=== PATIENT | female | born 1955 | race Asian ===

== ENCOUNTER 2025-01-09 00:37 | Emergency (ER) | payer OTHER, SELFPAY ==
--- OUTSIDE RECORDS SUMMARY | 2024-11-29 13:10 | XMS_ITS | Encounter Summary ---
Author Organization [employer] Address [address] [place] [address] Care Team Providers Care Passenger Flagman Name Role Phone Gena Muro MD Primary Care Provider [phone] Reason for Visit * Procedure/Equipment (Routine) - Incomplete Specialty Diagnoses / Procedures Referred By Contac t Referred To Contact Diagnoses Encounter for screening mammogram for malignant neoplasm of breast Procedures MM Mammogram Screening Karen Bautista MD [address] [place] [address] Phone: tel: fax: Referral ID Status Reason Start Date Expiration Date V isits Requested Visits Authorized [id number] Incomplete 06/22/2024 09/21/2025 1 1 Encounter Details Date Type Department Care Team (Latest Contact Info) Description 11/29/2024 1:10 PM CDT Ancillary Procedure [facility] Mammography [address] [place] [id number] Encounter for screening mammogram for malignant neoplasm of breast Social History Tobacco Use Types Packs/Day Years Used Date Smoking Tobacco: Never Passive Smoke Exposure: Never Smokeless Tobacco: Never Alcohol Use Standard Drinks/Week Comments No 0 (1 standard drink = 0.6 oz pur e alcohol) PHQ-2 Answer Date Recorded PHQ-2 Score 0 06/22/2024 Comments No Sex and Gender Information Value Date Recorded Sex Assigned at Not on file Legal Sex Female 4:42 AM CDT Gender Identity Not on file Sexual Orientation Not on file documented as of this encounter Plan of Treatment Upcoming Encounters Date Type Department Care Team (Late st Contact Info) Description 02/16/2025 3:20 PM CDT Appointment [facility] [address] [facility] [place] [phone] [place] [address] [place] [address] [place] [phone] 09/28/2025 1:15 PM CDT Appointment [facility] 435 [place], [place] [phone] Sari Alcaraz MD 435 [place] [address] 11/10/2025 2:00 PM CDT Appointment Optometry at [facility] [address] 401 [facility]. [place], [place] [phone] Edil Bradford OD 401 [place] [address] documented as of this encounter Procedures Procedure Name Priority Date/Time Associated Diagnosis Comments MM MAMMOGRAM SCREENING BILAT W CAD Routine 11/29/2024 12:59 PM CDT Encounter for screening mammogram for malignant neoplasm of breast documented in this encounter Results * MM Mammogram Screening Bilat W CAD (11/29/2024 12:59 PM CDT) Anatomical Region Laterality Modality Breast Bilateral Mammography Impressions 11/30/2024 9:20 AM CDT : ACR BI-RADS Category 1: Negative RECOMMENDATION: Follow Up Imaging in 12 months - Bilateral The results and recommendations of this examination will be communicated to the patient. Narrative 11/30/2024 9:20 AM CDT MM MAMMOGRAM SCREENING BILAT W CAD performed on 11/29/24 FDA Accredited Facility: [place] [address] Compared to: 12/16/2022 MM Mammogram Screening Bilat W CAD, 07/27/2021 MM Mammogram Screening Bilat W 3D Raad W CAD, and 01/01/2019 MM Mammogram Screening Bilat W 3D Raad W CAD FINDINGS: Bilateral screening mammogram was performed with the assistance of Computer-Aided Detection . There are scattered areas of fibroglandular density. There is no radiographic evidence of malignancy. us Karen Posey MD RAD KIM Final Result documented in this encounter Visit Diagnoses Diagnosis Encounter for screening mammogram for malignant neoplasm of breast Other screening mammogram documented in this encounter Care Teams Passenger Flagman Relationship Specialty Start Date End Date Gena Muro MD [address] [place] [address] PCP - General Family Practice 11/17/24 documented as of this encounter
[2025-01-09 00:46] VITALS: BP 129/76; PULSE 73; RESP 16; TEMP 36.6; O2SAT 98; BMI 25.6
[2025-01-09 00:54] LABS: Appearance Urine Cloudy (Clear)
--- NOTE | 2025-01-09 00:54 | ED_ITS ---
HPI - General Adult General Chief complaint: Urogenital Problems, Female Stated complaint: blood in urine Time Seen by Provider: 01/09/25 00:54 History of Present Illness HPI narrative: lower middle abdominal pain with blood in urine. denies fevers. states has had this on and off for years, usually takes Solifenacin for this. 69-year-old woman presenting to the emergency department with concern of burning pain in the mid lower abdomen. 3 days of some suprapubic abdominal pain somewhat burning and urinary frequency and then today has noted some hematuria. History of taking solifenacin as prescribed by doctors. She indicates initially that she has never been diagnosed with the urinary tract infection; it has never been communicated. No fever. Related Data Home Medications ?Medication ?Instructions ?Recorded ?Confirmed glipizide PO 01/09/25 metformin .ROUTE 01/09/25 Allergies Allergy/AdvReac Type Severity Reaction Status Date / Time No Known Drug Allergies Allergy Verified 01/09/25 00:50 Review of Systems Status of ROS: Reports: 6 or more systems reviewed and unremarkable except as noted in History and below [facility] Medical History Overactive bladder ?N32.81 - Overactive bladder (ICD-10) Social History Smoking Status: Never smoker Second hand tobacco smoke exposure: No How often do you have a drink containing alcohol: never AUDIT-C Alcohol total score: 0 Non-prescribed substance use: denies use Exam Narrative: Exam Narrative: Pleasant. NAD. Visit aided with sprinkling system installer. Accompanied by daughter. I think Ronnie understands a good deal of Kitt[place]. Breathing easily. Heart in regular rate and rhythm. Abdomen is soft and tender in the suprapubic area. No peritoneal signs. No masses. Extremities are well perfused without edema. Const: Vital Signs, click to edit/add: Vital Signs - 24 hr 01/09/25 00:46 Temperature 97.9 F Pulse Rate [Pulse Oximeter] 73 Respiratory Rate 16 Blood Pressure [Ri ght Upper Arm] 129/76 Pulse Oximetry 98 Oxygen Delivery Me thod Room Air Documenting provider has reviewed patient's vital signs: yes Course Vital Signs Vital signs: Initial Vital Signs Temperature 97.9 F 01/09/25 00:46 Temperature Source Temporal Artery Scan 08/24/25 00:46 Pulse Rate 73 01/09/25 00:46 Respiratory Rate 16 01/09/25 00:46 Blood Pressure 129/76 01/09/25 00:46 Blood Pressure Mean 93 01/09/25 00:46 Blood Pressure Position Sitting 01/09/25 00:46 Pulse Oximetry 98 01/09/25 00:46 Oxygen Delivery Method Room Air 01/09/25 00:46 Vital Signs Temperature 97.9 F 01/09/25 00:46 Pulse Rate 73 01/09/25 00:46 Respiratory Rate 16 01/09/25 00:46 Blood Pressure 129/76 01/09/25 00:46 Pulse Oximetry 98 01/09/25 00:46 Oxygen Delivery Method Room Air 01/09/25 00:46 Temperature 97.9 F 01/09/25 01:48 Pulse Rate 70 01/09/25 01:48 Respiratory Rate 16 01/09/25 01:48 Blood Pressure 124/71 01/09/25 01:48 Pulse Oximetry 98 01/09/25 01:47 Oxygen Delivery Method Room Air 01/09/25 01:47 Medical Decision Making MDM Narrative Medical decision making narrative: Does not seem to have degree of pain that I would think for ureteral stone and colic. Vitals otherwise do not suggest other more concerning abnormality. Urinalysis looking for cystitis/UTI. Urinalysis looks infected. Anticipating treatment with cephalexin and would offer treatment with phenazopyridine as well. See patient discharge plan for further discussion Focus on staying hydrated with water. Your urine does look to be infected. We will be doing a urine culture here and if it looks like we need to change course with antibiotics or make other recommendations, we will give you a call. I am prescribing cephalexin, an antibiotic, from [facility]. Also prescribing phenazopyridine which you can take for burning-type pain. This is available [id number] under a brand-name Azo. Return for marked increase in pain, associated vomiting or fever. Lab Data Lab results reviewed: Yes I reviewed the patient's lab results Labs: Lab Results 01/09/25 Range/Units 00:45 Urine Color Yellow (Yellow) Urine Appearance Cloudy A (Clear) Urine pH 8.0 (5.0-8.5) Ur Specific [place]is 1.015 (1.000-1.030) Urine Protein 1+ A (Negative) Urine Glucose (UA) Negative (Negative) Urine Ketones Negative (Negative) Urine Blood 3+ A (Negative) Urine Nitrite Negative (Negative) Urine Bilirubin Negative (Negative) Urine Urobilinogen 0.2 (0.2-1.0) Ur Leukocyte Esterase 3+ A (Negative) Urine RBC 10-25 A (0-2) Urine WBC >100 A (0-5) Urine WBC Clumps Moderate A (None) Ur Squamous Epith Cells None (None-Few) Urine Bacteria Moderate A (None) Discharge Plan Discharge Clinical Impression: Cystitis Patient Disposition: Home w/ Parent or Adult Condition: Stable Additional Instructions: Focus on staying hydrated with water. Your urine does look to be infected. We will be doing a urine culture here and if it looks like we need to change course with antibiotics or make other recommendations, we will give you a call. I am prescribing cephalexin, an antibiotic, from [facility]. Also prescribing phenazopyridine which you can take for burning-type pain. This is available [id number] under a brand-name Azo. Return for marked increase in pain, associated vomiting or fever. phtao t eulalia elizabeth roksaa [place] cheamuoynung tuk . tuknom robsa anak meul tow mean merok . rigoberto nung thveu vobbathmr tuknom now tinih haey brasenbae sandra meultowdauchchea rigoberto trauvkar phlasa btau r vokkoseksaa cheamuoynung thnam ang ti bi yo tich ryy thveukear bassam phsaengtiet rigoberto nung toursapt tow anak . khnhom kampoung chenh vechchobanhchea cephalexin del luc ang ti bi shiloh ti kpi [facility] . ka chenh vechchobanhchea phenazopyridine del anak ach ttuol yk samreab karchhucheab braphet dot . nih? ku? ach? rk? paolo? ban? now? bee? banhchor? kraom? meak yihao Azo . kellyokbernice [facility] stella guillen . Prescriptions: No Action metformin .ROUTE glipizide PO Stand Alone Forms: [facility] Inst[facility]
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
--- OUTSIDE RECORDS SUMMARY | 2025-01-09 01:37 | XMS_ITS | Encounter Summary ---
Author Organization [email or web address] Address [address] [place] [address] Care Team Providers Care Laundry Attendant Name Role Phone Gena Muro MD Primary Care Provider [phone] Encounter Details Date Type Department Care Team (Late st Contact Info) Description 03/16/2012 Consent for Procedure/Treatme nt [facility] Department INFORMED CONSENT RECORD Social History Tobacco Use Types Packs/Day Years Used Date Smoking Tobacco: Never Smokeless Tobacco: Never Comments:11 Alcohol Use Standard Drinks/Week Comments No 0 (1 standard drink = 0.6 oz pur e alcohol) 11 Comments No Sex and Gender Information Value Date Recorded Sex Assigned at Not on file Legal Sex Female 4:42 AM CDT Gender Identity Not on file Sexual Orientation Not on file documented as of this encounter Progress Notes * [facility], PROVIDER - 03/16/2012 12:00 AM CDT documented in this encounter Plan of Treatment Upcoming Encounters Date Type Department Care Team (Late st Contact Info) Description 02/16/2025 3:20 PM CDT Appointment [facility] [address] [place] [address] [place] [phone] [place] [address] [place] [address] [place] [address] 09/28/2025 1:15 PM CDT Appointment [facility] 435 [place] [address] Sari Alcaraz MD 435 [place] [address] 11/10/2025 2:00 PM CDT Appointment Optometry at [facility] 401 [address] 401 [facility] 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
--- OUTSIDE RECORDS SUMMARY | 2025-01-09 01:37 | XMS_ITS | Encounter Summary ---
Author Organization [employer] Address [address] [place] [address] Care Team Providers Care Barbecue Cook Name Role Phone Gena Muro MD Primary Care Provider [phone] Encounter Details Date Type Department Care Team (Late st Contact Info) Description 11/09/2013 Outside Hospital External to [facility], Provider INITIAL ASSESSMENT Social History Tobacco Use Types Packs/Day Years Used Date Smoking Tobacco: Never Smokeless Tobacco: Never Alcohol Use Standard [...] Info) Description 02/16/2025 3:20 PM CDT Appointment [facility] [address] [place] [address] [place] [phone] Gena Muor MD [address] [place] [address] [place] [phone] 09/28/2025 1:15 PM CDT Appointment Specialty Center [facility] U[facility] Clinic [address] [place] [address]. [place] [address] Sari Alcaraz MD [address] [place] [address] 11/10/2025 2:00 PM CDT Appointment Optometry at [facility] 401 [address] 401 [facility]. 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
--- OUTSIDE RECORDS SUMMARY | 2025-01-09 01:37 | XMS_ITS | Encounter Summary ---
Author Organization [employer] Address [address] [place] [address] Care Team Providers Care Insulation Sprayer Name Role Phone Gena Muro MD Primary Care Provider Encounter Details Date Type Department Care Team (Late st Contact Info) Description 07/22/2016 Refill Order [facility] [address] [place] [address] Karen Posey MD [address] [place] [phone] Social History Tobacco Use Types Packs/Day Years Used Date Smoking Tobacco: Never Smokeless Tobacco: Never Alcohol Use Standard Drinks/Week Comments No 0 (1 standard drink = 0.6 oz pur e alcohol) Comments No Sex and Gender Information Value Date Recorded Sex Assigned at Not on file Legal Sex Female 4:42 AM CDT Gender Identity Not on file Sexual Orientation Not on file documented as of this encounter Nursing Notes * Manuel Denton CMA - 07/22/2016 1:00 PM CST Letter sent to ptAntonio Denton CMA 07/22/2016, 1:00 PM 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 documented in this encounter Plan of Treatment Upcoming Encounters Date Type Department Care Team (Late st Contact Info) Description 02/16/2025 3:20 PM CDT Appointment [facility] [address] [place] [phone] Gena Muro MD [address] [place] [phone] 09/28/2025 1:15 PM CDT Appointment [facility] 435 [place], [place] [phone] Sari Alcaraz MD 435 [place] [address] 11/10/2025 2:00 PM CDT Appointment Optometry at [facility] 401 [address] 401 [place], [place] [phone] Edil Bradford, OD 401 [place], [place] [phone] documented as of this encounter Results * Creatinine / GFR (08/09/2016 12:20 PM CDT) Creatinine 0.59 0.55 - 1.02 mg/dl [facility] GFR, Estimated >60 >60 ml/min/1.7 3m2 [facility] GFR, Est., If Black >60 >60 ml/min/1.7 3m2 [facility] 08/09/2016 12:2 0 PM CDT 08/09/2016 12:22 PM CDT Narrative [facility] - 08/09/2016 4:04 PM CDT Performed at [facility], [address] [place] [address] us Karen Posey MD LAB_1 Final Result [facility] [phone] documented in this encounter Visit Diagnoses Diagnosis Encounter for long-term (current) use of medications- Primary Encounter for long-term (current) use of other medications Encounter for long-term (current) use of medications Encounter for long-term (current) use of other medications documented in this encounter Additional Health Concerns Infection Onset Date Last Indicated Resolved Time R/O COVID19 05/21/2023 05/21/2023 05/21/2023 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
--- OUTSIDE RECORDS SUMMARY | 2025-01-09 01:37 | XMS_ITS | Encounter Summary ---
Author Organization [employer] Address [address] [place] [address] Care Team Providers Care Project Planner Name Role Phone Gena Muro MD Primary Care Provider [phone] Encounter Details Date Type Department Care Team (Late st Contact Info) Description 05/21/2019 Consent for Procedure/Treatme nt [facility] INFORMED CONSENT RECORD Social History Tobacco Use Types Packs/Day Years Used Date Smoking Tobacco: Never Smokeless Tobacco: Never Alcohol Use Standard Drinks/Week Comments No 0 (1 standard drink = 0.6 oz pur e alcohol) PHQ-2 Answer Date Recorded PHQ-2 Score 0 04/16/2019 Comments No Sex and Gender Information Value Date Recorded Sex Assigned at Not on file Legal Sex Female 4:42 AM CDT Gender Identity Not on file Sexual Orientation Not on file documented as of this encounter Plan of Treatment Upcoming Encounters Date Type Department Care Team (Late st Contact Info) Description 02/16/2025 3:20 PM CDT Appointment [facility] [address] [place] [address] [place] [phone] [place] [address] [place] [address] [place] [phone] 09/28/2025 1:15 PM CDT Appointment [facility] [address] [place] [address] Sari Alcaraz MD [address] [place] [address] 11/10/2025 2:00 PM CDT Appointment Optometry at [facility] [address] 401 [facility] 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
--- OUTSIDE RECORDS SUMMARY | 2025-01-09 01:37 | XMS_ITS | Clinical Summary ---
Author Organization [employer] Address [address] [place] [address] Care Team Providers Care Junior Designer Name Role Phone Gena Muro MD Primary Care Provider [phone] Source Comments You are receiving this document as you are listed as the primary care provider,follow-up provider, or the patient has been referred to you for consultation.This is in compliance with the Medicare andMedicaid EHR Incentive Program,which states Providers who transition their patient to another setting of careor provider of care or refers their patient to another provider of care shouldprovide summary care record for each transition of care or referral. [employer] Allergies Active Allergy Reactions Criticality Noted Date Comments Pravastatin Headache 01/14/2022 Statins Headache 03/16/2024 Ezetimibe Dizziness 07/20/2022 drowsiness Medications Multiple Vitamins-Calcium (ONE-A-DAY WOMENS OR) Active blood glucose (ACCU-CHEK BREE) strip Apply topically two times a day before meals. Use as directed. Pharmacy dispense brand based on insurance and as needed 100 Each 012 Active lancets (ACCU-CHEK MULTICLIX LANCETS) two times a day before meals. Use as directed. Pharmacy dispense brand based on insurance. 102 Each 012 Active Cholecalciferol (VITAMIN D3) 25 MCG (1000 UT) taIndications:Vitamin D deficiency (HRC) Take 1 Tablet by mouth daily. 100 Tablet 021 Active Propylene Glycol 0.6 % SOLNIndications:Dry eyes, bilateral Place 1 Drop into both eyes daily as needed. 10 mL 023 Active meclizine (ANTIVERT) 25 MG tablet MECLIZINE HCL 25 MG TABS Active blood glucose (ONETOUCH VERIO) test stripIndications:Type 2 diabetes mellitus without complication, without long-term current use of insulin (HRC) Use to test daily. for diabetes monitoring 100 Each 024 Active ONETOUCH DELICA lancetsIndications:Type 2 diabetes mellitus without complication, without long-term current use of insulin (HRC) Use once daily. 100 Each Active solifenacin (VESICARE) 10 MG tabletIndications:Urina ry Incontinence Take 1 Tablet (10 mg) by mouth daily. Indications: Urinary Incontinence 90 Tablet 3 025 2025 Active metFORMIN (GLUCOPHAGE) 1000 MG tablet TAKE 1 TABLET BY MOUTH TWICE DAILY WITH MEALS 180 Tablet 2 Active glipiZIDE XL (GLUCOTROL XL) 10 MG 24 hour release tabletIndications:Type 2 diabetes mellitus without complication, without long-term current use of insulin (HRC) TAKE 1 TABLET BY MOUTH TWICE DAILY WITH MEALS 180 Tablet 2 Active blood glucose (ONETOUCH VERIO) test stripIndications:Type 2 diabetes mellitus without complication, without long-term current use of insulin (HRC) Use to test bg 1 time daily. Use as directed. 50 Each Active Lancets (ONETOUCH DELICA PLUS) MISC lancetsIndications:Type 2 diabetes mellitus without complication, without long-term current use of insulin (HRC) USE TO TEST BLOOD SUGAR 2 TIMES DAILY 100 Each Active rosuvastatin (CRESTOR) 10 MG tabletIndications:Pure hypercholesterolemia Take 0.5 Tablets (5 mg) by mouth daily. 45 Tablet Active losartan-hydrochlorothi azide (HYZAAR) 50-12.5 MG tabletIndications:Essen tial hypertension (HRC) Take 1 Tablet by mouth daily. 90 Tablet 3 025 2025 Active Active Problems Problem Noted Date Diagnosed Date Overactive bladder 07/03/2023 Language barrier affecting health care Statin not tolerated 01/14/2022 Overview (12/12/2022): April 2021-pravastatin stop secondary to severe headaches. Zetia started in December 2021- stopped because of dizziness. Pure hypercholesterolemia 01/14/2022 Senile nuclear cataract, right 05/21/2019 Overview (05/21/2019): Added automatically from request for surgery [id number] Screening for malignant neoplasm of cervix 12/15 Overview (02/18/2015): [id number] NILM 2015 NILM, hpv negative Plan: Co-test 11/2019 ICD 10 Type 2 diabetes mellitus without complication Benign positional vertigo 11/08/2013 Pelvic relaxation disorder 10/22/2010 Vitamin D deficiency 11/16/2008 Low back pain 10/28/2006 Overview (01/25/2015): ICD 10 Resolved Problems Problem Noted Date Diagnosed Date Resolved Date PVD (posterior vitreous deta chment), right eye 05/24/2019 09/03/2021 Diabetes mellitus 01/21/2014 12/10/2014 Hyperlipidemia with target LDL less than 100 3 12/10/2014 Overview (01/25/2015): ICD 10 Diabetes mellitus type II, uncontrolled 03/10/2011 11/15/2013 Helicobacter pylori infection 11/10/2008 06/21/2013 Overview (01/25/2015): ICD 10 Allergic rhinitis 10/28/2006 12/10/2014 Esophageal reflux 03/26/2004 12/10/2014 Encounters Date Type Department Care Team Description 12/07/2024 Results Follow-Up [facility] [address] [place] [address] [place] [phone] Gena Muro MD 11/29/2024 1:10 PM CDT Ancillary Procedure [address] [address] Encounter for screening mammogram for malignant neoplasm of breast 11/17/2024 3:40 PM CDT Office Visit [facility] [address] [facility] [place] [phone] Gena Muro MD Type 2 diabetes mellitus without complication, without long-term current use of insulin (HRC) (Primary Dx); Essential hypertension (HRC); Pure hypercholesterolemi a; Medication monitoring encounter 11/15/2024 Refill [facility] [place] [address] Karen Posey MD Refill (metFORMIN (GLUCOPHAGE) 1000 MG tablet [Pharmacy Med Name: metFORMIN HCl 1000 MG Oral Tablet]; glipiZIDE XL (GLUCOTROL XL) 10 MG 24 hour release tablet [Pharmacy Med Name: glipiZIDE ER 10 MG Oral Tablet Extended Release 24 Hour]) 11/10/2024 2:00 PM CDT Office Visit Optometry at [address] [address] Edil Bradford, ASHA Visit for eye and vision exam (Primary Dx); Myopia of both eyes with astigmatism and presbyopia; Dry eyes, bilateral; Diabetes type 2, no ocular involvement (HRC); Combined forms of age-related cataract of left eye; Pseudophakia from Last 3 Months Immunizations Immunization Administration Dates Next Due Flu Vac (3+ yrs) 02/05/2012,02/06/2011, 0 Flu Vac Preserv Free (3+yrs) 02/23/2016 Fluzone Qiv Multidose Vial 0 .25 (6-35 Mos) 03/16/2019,03/26/2017,02/26/2016 Hdcv - Rabies Vaccine 02/18/2011,02/11/2011 Hepatitis B - Surface Antibo dy Positive 01/31/2011 Hepatitis B - Surface Antige n Positive 01/31/2011 IPV (Polio) 02/11/2011 Influenza IIV3 (Trivalent) F luzone Highdose, 65+ Yrs ([id number]) 03/17/2024,02/21/2023 Influenza IIV4 (Quadrivalent ) 0.5mL ([id number]) 02/16/2019,03/19/2017,02/03/2013 Influenza IIV4 (Quadrivalent ) Fluad, 65+ Yrs 02/18/2022,02/04/2020 Influenza IIV4 (Quadrivalent ) Fluzone, 65+ Yrs 02/21/2023,02/22/2021 Influenza, Unspecified Formulation 01/31/2015, JE (IXIARO) 02/11/2011 Moderna Bivalent 12+ 04/06/2022 PCV20 ([id number]) 02/18/2022 PPSV23 (Pneumovax) 02/04/2020,06/15/2012 Pfizer Monovalent 12+ 01/10/2022 Pfizer Monovalent 12+ Purple Top 05/04/2021,08/17,08/16/2020 Positive Hepatitis A Titer 01/31/2011 Td 03/26/2004 Td (7+ yrs) 12/04/1981,06/12/1981,01/09/1981 Td (Tdvax) 12/04/1981,06/12/1981,01/09/1981 Tdap 12/12/2022,02/18/2011 Typhoid (Typhim Vi, IM) 04/02/2023,02/11/2011 Varicella 02/01/2011(Deferred: Immune by Americo muniz) Zoster RZV (Shingrix) 02/21/2023 Family History Medical History Relation Name Comments Cancer, Breast Negative Family History Cancer, Ovary Negative Family History Cataract Negative Family History Glaucoma Negative Family History Macular Degeneration Negative Family History Retinal Detachment Negative Family History Social History Tobacco Use Types Packs/Day Years Used Date Smoking Tobacco: Never Passive Smoke Exposure: Never Smokeless Tobacco: Never Tobacco Cessation:Counseling Given: No Alcohol Use Standard Drinks/Week Comments No 0 (1 standard drink = 0.6 oz pur e alcohol) PHQ-2 Answer Date Recorded PHQ-2 Score 0 06/22/2024 Comments No Sex and Gender Information Value Date Recorded Sex Assigned at Not on file Legal Sex Female 4:42 AM CDT Gender Identity Not on file Sexual Orientation Not on file Last Filed Vital Signs Vital Sign Reading Time Taken Comments Blood Pressure 139/79 11/17/2024 3:58 PM CDT Pulse 68 11/17/2024 3:58 PM CDT Temperature 36.2 C (97.1 F) 06/22/2024 2:32 PM [employer] Respiratory Rate 16 10/02/2023 2:27 PM CDT Oxygen Saturation 99% 02/04/2023 10:43 AM CDT Inhaled Oxygen Concentration - - Weight 64.2 kg (141 lb 9.6 oz) 11/17/2024 3:39 P M CDT Height 154.9 cm (5' 1) 11/17/2024 3:39 PM CDT Body Mass Index 26.76 11/17/2024 3:39 PM CDT Plan of Treatment Upcoming Encounters Date Type Department Care Team (Late st Contact Info) Description 02/16/2025 3:20 PM CDT Appointment [facility] [address] [place] [address] [place] [phone] [place] [address] [place] [address] [place] [phone] 09/28/2025 1:15 PM CDT [facility] [address] [place], [place] [phone] Sari Alcaraz MD [address] [place], [place] [phone] 11/10/2025 2:00 PM CDT Appointment Optometry at [facility] [address] [facility] [place], [place] [phone] Edil Bradford, OD [address] [place], [place] [phone] Health Maintenance Due Date Last Done Comments Hep B Immunization Discussion 1955 Tuberculosis Screening 1955 MCV4 Vaccine (1 - Risk 2-dose series) 02/26/1957 Zoster/Shingles Vaccine (2 of 2) 04/18/2023 02/21/2023 COVID-19 Vaccine ( season) 2024 04/06/2022, 01/10/2022, 05/04/2021, Additional history exists Diabetes: HGBA1C 12/20/2024 06/22/2024, , 06/30/2023, Additional history exists Influenza Vaccine (#1) 2025 , 02/21/2023, 02/21/2023, Additional history exists Diabetes: Albumin/Creatinine Ratio, Urine 06/22/2025 06/22/2024, 10/02/2023, 12/12/2022, Additional history exists Diabetes: Creatinine 06/22/2025 06/22/2024, 06/25/2023, 2023, Additional history exists Diabetes: Foot Exam 06/22/2025 06/22/2024, 07/03/2023, 06/19/2022, Additional history exists Medicare Annual Wellness Visit 06/22/2025 06/22/2024, 2023, 01/05/2022, Additional history exists Diabetes: Eye Exam 11/10/2025 11/10/2024, 0 11/10/2024, 11/05/2023, Additional history exists Mammogram 11/29/2025 11/29/2024, 11/18, 07/27/2021, Additional history exists RSV Vaccine (1 - 1-dose 75+ series) 2029 Diabetes: Lipid Panel 06/22/2029 06/22/2024 , 06/30/2023, 12/12/2022, Additional history exists Colonoscopy 09/27/2029 09/27/2022, 03/16/2012 DTaP/Tdap/Td Vaccine (3 - Tdap) 12/12/2032 12/12/2022, 02/18/2011, 03/26/2004, Additional history exists Cervical Cancer Screening Discontinued 2014, 10/17/2010, 11/08/2008, Additional history exists Hep C Screening (Preventive Services) Completed 03/19/2016 Pneumococcal Vaccine 50+ Yrs Completed 02/18/2022, 02/04/2020, 06/15/2012 Dexa Completed 03/19/2023 Hib Vaccine Aged Out No longer eligi ble based on patient's age to complete this topic Meningococcal B Vaccine Aged Out No l onger eligible based on patient's age to complete this topic Medical Devices Implanted Type Area Mortgage Protection Sales Device Identifier Shelf Expiration Date Model / Serial / Lot Lens Iol Saundra Zcb00 14.0 - [id number] Implanted:Qty: 1 on 06/03/2019 by Iain Fournier MD at [facility] DEVICE [employer] 01/28/2023 [id number] / [id number] / Procedures Procedure Name Priority Date/Time Associated Diagnosis Comments MM MAMMOGRAM SCREENING BILAT W CAD Routine 11/29/2024 12:59 PM CDT Encounter for screening mammogram for malignant neoplasm of breast HGB A1C Routine 06/22/2024 4:46 PM [employer] Type 2 diabetes mellitus without complication, without long-term current use of insulin (HRC) COMPREHENSIVE METABOLIC PANEL Routine 06/22/2024 4:45 PM [employer] Type 2 diabetes mellitus without complication, without long-term current use of insulin (HRC) Pure hypercholesterolemia LDL CHOLESTEROL, DIRECT MEASURED Routine 06/22/2024 4:45 PM [employer] Pure hypercholesterolemia ALBUMIN/CREAT RATIO Routine 06/22/2024 3 :57 PM [employer] Type 2 diabetes mellitus without complication, without long-term current use of insulin (HRC) DXA BONE DENSITY SPINE/HIP Routine 03/19/2023 2:27 PM CDT Screening for osteoporosis Other osteoporosis without current pathological fracture (HRC) COLONOSCOPY Routine 09/27/2022 8:24 AM CDT Screen for colon cancer HEPATITIS C ANTIBODY, WITH REFLEX (ANTI-HCV) Routine 03/19/2016 4:32 PM CDT Screening for endocrine, nutritional, metabolic and immunity disorder PAP TEST, ROUTINE Routine 12/08/2014 10:50 AM CDT Screening for cervical cancer from Last 3 Months or Most Recently Relevant to Health Maintenance Results * MM Mammogram Screening Bilat W [...] CAD performed on 11/29/24 FDA Accredited Facility: [place] [address] Compared to: 12/16/2022 MM Mammogram Screening Bilat W CAD, 07/27/2021 MM Mammogram Screening Bilat W 3D Raad W CAD, and 01/01/2019 MM Mammogram Screening Bilat W 3D Raad W CAD FINDINGS: Bilateral screening mammogram was performed with the assistance of Computer-Aided Detection . There are scattered areas of fibroglandular density. There is no radiographic evidence of malignancy. Karen Posey MD RAD KIM Final Result * (ABNORMAL) Hgb A1C (06/22/2024 4:46 PM [employer]) Hemoglobin A1C 6.7(H) <=5.6 % 06/22/2024 9:22 PM [facility] [facility] [facility] Estimated Average Glucose (Calc) 146 < 117 mg/dL 06/22/2024 9:22 PM [facility] Comment:Estimated average gl ucose (eAG) converts A1c into glucose units (mg/dL) and estimates average glucose over the past approximately 3 months. The eAG reference interval (<117 mg/dL) corresponds to an A1c of <5.7%. Blood Venipuncture / Unknown 06/22/2024 4:46 PM [employer] 06/22/2024 4:46 PM [employer] [facility] - 06/22/2024 9:22 PM [employer] For patients not previously diagnosed with diabetes: 5.7-6.4%: Increased risk for diabetes 6.5% and greater: Diagnostic for diabetes For patients diagnosed with diabetes: <8.0%: Goal of therapy for ages 18-75 Clinicians may recommend a higher or lower goal for specific individuals. Karen Posey MD LAB_1 Final Result Performing Organization Address [facility]/ZIP Co de Phone Number [facility] [address] * (ABNORMAL) LDL Cholesterol, Direct Measured (06/22/2024 4:45 PM [employer]) LDL, Direct 153(H) <=130 mg/dL 06/22/2024 8:28 PM [facility] Blood Venipuncture / Unknown 06/22/2024 4:45 PM [employer] 06/22/2024 4:45 PM [employer] Karen Posey MD LAB_1 Final Result Performing Organization Address [facility] Co de Phone Number [facility] [address] * (ABNORMAL) Comp Metabolic Panel (06/22/2024 4:45 PM [employer]) Pathologist [facility] Sodium 137 136 - 145 mmol/L 06/22/2024 8:28 PM [facility] Potassium 3.9 3.5 - 5.1 mmol/L 06/22/2024 8:28 PM [facility] Chloride 102 98 - 109 mmol/L 06/22/2024 8:28 PM [facility] CO2 22 20 - 29 mmol/L 06/22/2024 8:28 PM [facility] Anion Gap 13 6 - 16 mmol/L 06/22/2024 8:28 PM [facility] Calcium 9.2 8.4 - 10.4 mg/dL 06/22/2024 8:28 PM [facility] BUN 12 7 - 26 mg/dL 06/22/2024 8:28 PM [facility] Creatinine 0.61 0.55 - 1.02 mg/dL 06/22/2024 8:28 PM [facility] Alkaline Phosphatase 36(L) 40 - 150 U/L 06/22/2024 8:28 PM [facility] AST (SGOT) 42(H) 10 - 40 U/L 06/22/2024 8:28 PM [facility] ALT (SGPT) 43 0 - 55 U/L 06/22/2024 8:28 PM [facility] Bilirubin, Total 0.3 0.2 - 1.2 mg/dL 06/22/2024 8:28 PM [facility] Protein, Total 7.6 6.4 - 8.3 g/dL 06/22/2024 8:28 PM [facility] Albumin 4.2 3.5 - 5.0 g/dL 06/22/2024 8:28 PM [facility] Glucose 267(H) 70 - 100 mg/dL 06/22/2024 8:28 PM [facility] Comment:The given reference range is for the fasting state. Non-fasting reference range for glucose is 70 - 180 mg/dL. GFR, Estimated >60 >60 mL/min/1. 73m2 06/22/2024 8:28 PM [facility] Hours Fasting 0.1 8 - 12 Hours 06/22/2024 8:28 PM [facility] Blood Venipuncture / Unknown 06/22/2024 4:45 PM [employer] 06/22/2024 4:45 PM [employer] us Karen Posey MD LAB_1 Final Result Performing Organization Address City/State/[facility] Co de Phone Number [facility] [address] * Albumin/Creatinine Ratio,Random Urine (06/22/2024 3:57 PM [employer]) Albumin/Creati nine Ratio, Urine, Random 5 <30 mg/g 06/22/2024 8:48 PM [facility] Albumin, Urine, Random 2.1 mg/L 06/22/2024 8:48 PM [facility] Creatinine, Urine, Random 44 >20 mg/dL mg/dL 06/22/2024 8:48 PM [facility] Urine Non-blood Collection / Unknown 06/22/2024 3:57 PM [employer] 06/22/2024 3:57 PM [employer] us Karen Posey MD LAB_1 Final Result [facility] [address] [place] [address], [facility] * DXA Bone Density Spine/Hip (03/19/2023 2:27 PM CDT) DXA Lumbar Spine Bone Mineral Density 0.782 gm/cm2 EXTERNAL RESULTS DXA Lumbar Spine T-Score -2.4 EXTERNAL RESULTS DXA Lumbar Spine Z-Score -0.4 EXTERNAL RESULTS DXA Hip Left Bone Mineral Density 0.883 gm/cm2 EXTERNAL RESULTS DXA Hip Left T-Score -0.5 EXTERNAL RESULTS DXA Hip Left Z-Score 1.0 EXTERNAL RESULTS DXA Femur Left Bone Mineral Density 0.671 gm/cm2 EXTERNAL RESULTS DXA Femur Left T-Score -1.6 EXTERNAL RESULTS DXA Femur Left Z-Score 0.1 EXTERNAL RESULTS Anatomical Region Laterality Modality Lower Extremity, Spine, Hip, L-Spine Other Narrative 03/19/2023 2:47 PM CDT Table formatting from the original result was not included. Patient Name: Ronnie Chowdary Densitometer: [employer] W Appt Dept/Resource: [facility] Dxa HS DXA Demographics Age: 68 y.o. Gender: Female Height: 5' 2 (1.575 m) Height at age 24: 61 Weight: 140 lb (63.5 kg) Race: Medical/Surgical History Menstrual periods: None Age of menopause: 54 Able to stand from a chair easily without use of the arms?: Yes, easily How many falls indoors/outdoors within the last 12 months?: 0 History of fractures in parents: No History of previous fractures?: No Hip replacement?: No Oral cortisone or steroid medication for more than 3 months?: No Currently or have taken medications to treat osteoporosis?: No Taking any aromatase inhibitor medication for breast cancer - anti-estrogen excluding tamoxifen?: No Have had the following medical conditions: Diabetes mellitus type 1 or 2 Dietary/Habit Alcohol 3 units or more per day on average?: No Currently smoking tobacco? No Daily servings of calcium rich food: 0 Do you take a daily calcium supplement?: Yes, once per day Dual-X-ray Absorptiometry (DXA) Results Skeletal Site BMD (gm/cm2) T-Score Z-Score % Change from Previous Scan dated: N/A Spine (L1, L2, L3, L4) 0.782 -2.4 -0.4 N/A Left Hip (Total) 0.883 -0.5 1.0 N/A Left Hip (Femoral neck) 0.671 -1.6 0.1 N/A Right Hip (Total) N/A N/A N/A N/A Right Hip (Femoral neck) N/A N/A N/A N/A Forearm (/) (Not Scanned) N/A N/A N/A N/A *N/A indicates that measurements were either not needed or not valid FRAX Score: 10 Year Risk Hip Fracture: 1.5% 10 Year Risk Major Osteoporotic Fracture: 10% Comments: *Degenerative joint disease, compression fractures, or calcification artifacts may falsely increase bone mineral density. Diagnosis: *Low bone mass (osteopenia) of left hip and spine. Patient has a mildly increased risk of fracture Recommendations:. *Recommend lifestyle modifications as needed, including proper calcium/vitamin d intake, weight bearing exercises, and fall prevention. *Consider follow up DXA in 3 years, unless clinical circumstances change. Changes of spine and total hip bone density = 0.03 g/cm2 are beyond densitometer precision error and generally are considered significant when the current and prior studies were done on the same densitometer. FRAX Explanation: The 10 year risks of hip and major osteoporotic fractures (clinical spine, forearm, hip or shoulder fracture) are calculated by the FRAX algorithm based on femoral neck bone density, age, gender, race/ethnicity, weight, height, previous fracture, parental hip fracture, smoking status, glucocorticoid intake, history of RA, secondary osteoporosis, and high alcohol consumption. FRAX fracture risk estimates are adjusted for Trabecular Bone Score (TBS) when available. Trabecular Bone Score (TBS) is a measure of the microarchitectural integrity of trabecular bone, and is derived from the [id number] changes of bone density embedded in the AP spine BMD image. TBS is only modestly correlated with BMD, and is modestly associated with incident major osteoporotic and hip fractures independent of BMD and other risk factors. FRAX Fracture Risk Categories in terms of major osteoporotic fractures: < 10% = low fracture risk = 10% and <15% = mildly increased fracture risk = 15% and <20% = moderately increased fracture risk = 20% and <30% = high fracture risk = 30% = very high fracture risk National Osteoporosis Foundation Treatment Guideline A clinician may consider FDA-approved medical therapies in postmenopausal women and men aged 50 years and older, if one or more of the following is present (clinical correlation required and therapy may not always be indicated): The patient has a hip or vertebral fracture. T-score = -2.5 at the femoral neck, hip, or spine after appropriate evaluation to exclude secondary causes. Low bone mass (T-score between -1.0 and -2.5 at the femoral neck, hip or spine) and a 10-year probability of a hip fracture = 3% or a 10-year probability of a major osteoporosis-related fracture = 20% based on the FRAX scores. us Karen Posey MD RAD DEXA Final Result * COLONOSCOPY [[id number]] (09/27/2022 8:24 AM CDT) 09/27/2022 8:24 AM CDT Narrative GI ([facility]) - 09/27/2022 8:51 AM CDT Instrument Name: [id number] Indications: Screening for colorectal malignant neoplasm Providers: Zoë Orozco MD, Mare Limon, Mari Shipley RN Patient Profile: 67 y/o F with last scope in 2011, no FH of colon cancer. Golytely Bowel Prep Referring MD: Karen Posey MD Medicines: Midazolam 2 mg IV, Fentanyl 100 micrograms IV, Ondansetron 4 mg IV Complications: No immediate complications. Procedure: Pre-Anesthesia Assessment: - Prior to the procedure, a History and Physical was performed, and patient medications and allergies were reviewed. The patient is competent. The risks and benefits of the procedure and the sedation options and risks were discussed with the patient. All questions were answered and informed consent was obtained. Patient identification and proposed procedure were verified by the physician in the procedure room. Mental Status Examination: alert and oriented. Airway Examination: normal oropharyngeal airway and neck mobility. Respiratory Examination: clear to auscultation. CV Examination: normal. Prophylactic Antibiotics: The patient does not require prophylactic antibiotics. Prior Anticoagulants: The patient has taken no anticoagulant or antiplatelet agents. ASA Grade Assessment: I - A normal, healthy patient. After reviewing the risks and benefits, the patient was deemed in satisfactory condition to undergo the procedure. The anesthesia plan was to use moderate sedation / analgesia (conscious sedation). Immediately prior to administration of medications, the patient was re-assessed for adequacy to receive sedatives. The heart rate, respiratory rate, oxygen saturations, blood pressure, adequacy of pulmonary ventilation, and response to care were monitored throughout the procedure. The physical status of the patient was re-assessed after the procedure. After I obtained informed consent, the scope was passed under direct vision. Prior to sedation, patient identity and procedure was reverified. Throughout the procedure, the patient's blood pressure, pulse, and oxygen saturations were monitored continuously. The CF-[id number] was introduced through the anus and advanced to the cecum, identified by appendiceal orifice and ileocecal valve. The colonoscopy was performed without difficulty. The patient tolerated the procedure well. The quality of the bowel preparation was excellent. Findings: Hemorrhoids were found on perianal exam. A 1 mm polyp was found in the cecum. The polyp was sessile. The polyp was removed with a jumbo cold forceps. Resection and retrieval were complete. Non-bleeding internal hemorrhoids were found during retroflexion. The hemorrhoids were mild. Moderate Sedation: Moderate (conscious) sedation was personally administered by the endoscopist. The following parameters were monitored: oxygen saturation, heart rate, blood pressure, and response to care. Total physician intraservice time was 13 minutes. Impression: - Hemorrhoids found on perianal exam. - One 1 mm polyp in the cecum, removed with a jumbo cold forceps. Resected and retrieved. - Non-bleeding internal hemorrhoids. Recommendation: - Repeat colonoscopy in 7-10 years for surveillance, pending path. Procedure Code(s): --- Professional --- 88149, PT, Colonoscopy, flexible; with biopsy, single or multiple G0500, PT, Moderate sedation services provided by the same physician or other qualified health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
--- OUTSIDE RECORDS SUMMARY | 2025-01-09 01:37 | XMS_ITS | Encounter Summary ---
Author Organization [facility] Address [address] [place] [address] Care Team Providers Care Scalping Machine Operator Name Role Phone Gena Muro MD Primary Care Provider [phone] Encounter Details Date Type Department Care Team (Late st Contact Info) Description 05/21/2019 Correspondence None No Primary/Referring, Phy CATARACT SURGERY QUESTIONNAIRE Social History Tobacco Use Types Packs/Day Years [...] Info) Description 02/16/2025 3:20 PM CDT Appointment [facility] [address] [place] [address] [place] [phone] [place] [address] [place] [address] [place] [phone] 09/28/2025 1:15 PM CDT Appointment Specialty Center [facility] [address] [place] [address]. [place] [address] Sari Alcaraz MD [address] [place] [address] 11/10/2025 2:00 PM CDT Appointment Optometry at [facility] [address] [facility]. 

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
--- OUTSIDE RECORDS SUMMARY | 2025-01-09 01:37 | XMS_ITS | Encounter Summary ---
Author Organization [facility] Address [address] [place] [address] Care Team Providers Care Single Fold Machine Operator Name Role Phone Gena Muro MD Primary Care Provider Encounter Details Date Type Department Care Team (Late st Contact Info) Description 03/03/2016 Refill Order [facility] [address] [place] [address] Karen Posey MD [address] [place] [phone] Social History Tobacco Use Types Packs/Day Years [...] Nursing Notes * Manuel Denton CMA - 03/04/2016 4:58 PM CDT Letter sent to ptAntonio Denton CMA 03/04/2016, 4:58 PM documented in this encounter Plan of Treatment Upcoming Encounters Date Type Department Care Team (Late st Contact Info) Description 02/16/2025 3:20 PM CDT Appointment [facility] [address] [facility] [facility] [address] [place] [phone] Gena Muro MD [address] [facility] [address] [place] [phone] 09/28/2025 1:15 PM CDT Appointment Specialty [place] [facility] 435 [facility] [place], [place] [phone] Sari Alcaraz MD [address] [place], [place] [phone] 11/10/2025 2:00 PM CDT Appointment Optometry at [facility] [address] 401 [facility]. [place], [place] [phone] Edil Bradford OD [address] [place], [place] [phone] documented as of this encounter Results * (ABNORMAL) Hgb A1c (03/19/2016 4:32 PM CDT) Hgb A1c 6.6(H) 4.3 - 5.6 % [facility] Comment: See (NOTE) For patients not previously diagnosed with diabetes: 5.7-6.4%: Increased risk for diabetes (prediabetic) 6.5% and greater: Diagnostic for diabetes For diabetic patients: <8.0%: Goal of therapy for ages 18-75 - physicians may recommend a higher or lower goal for specific individuals 03/19/2016 4:32 PM CDT 03/19/2016 4:35 PM CDT Narrative [facility] - 03/20/2016 9:44 AM CDT Performed at [facility], [address] [place] [address] us Karen Posey MD LAB_1 Final Result [facility] [phone] documented in this encounter Visit Diagnoses Diagnosis Encounter for long-term (current) use of medications- Primary Encounter for long-term (current) use of other medications Type 2 diabetes mellitus without complication, unspecified long-term insulin use status (HRC)- Primary Screening for endocrine, nutritional, metabolic and immunity disorder Screening for other and unspecified endocrine, nutritional, metabolic, and immunity disorders Vitamin D deficiency (HRC) Unspecified vitamin D deficiency Encounter for long-term (current) use of medications Encounter for long-term (current) use of other medications documented in this encounter Additional Health Concerns Infection Onset Date Last Indicated Resolved Time R/O COVID19 05/21/2023 05/21/2023 05/21/2023 9:53 PM 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
--- OUTSIDE RECORDS SUMMARY | 2025-01-09 01:37 | XMS_ITS | Encounter Summary ---
Author Organization [email or web address] Address [address] [place] [address] Care Team Providers Care Manager Internal Name Role Phone Gena Muro MD Primary Care Provider Encounter Details Date Type Department Care Team (Late st Contact Info) Description 03/20/2012 Correspondence [facility] [address] [place] [address] Karen Posey MD [address] [place] [address] MEDICAL EQUIPMENT PROOF OF DELIVERY Social History Tobacco Use Types Packs/Day Years [...] as of this encounter Progress Notes * Karen Posey MD - 03/20/2012 12:00 AM CDT MANAGER PUBLIC documented in this encounter Plan of Treatment Upcoming Encounters Date Type Department Care Team (Late st Contact Info) Description 02/16/2025 3:20 PM CDT Appointment [facility] [address] [facility] [place] [phone] Gena Muro MD [address] [place] [phone] 09/28/2025 1:15 PM CDT Appointment [facility] 435 [facility]rology Clinic 435 [facility] [place], [place] [phone] Sari Alcaraz MD [address] [place] [address] 11/10/2025 2:00 PM CDT Appointment Optometry at [facility] [address] 401 [facility]. [place], [place] [phone] Edil Bradford, OD [address] [place], [place] [phone] documented as of this encounter Visit Diagnoses Not on filedocumented in this encounter Additional Health Concerns Infection Onset Date Last Indicated Resolved Time R/O COVID19 05/21/2023 05/21/2023 05/21/2023 9:53 PM TAX MANAGER PUBLIC documented as of this encounter Care Teams Manager Internal Relationship Specialty Start Date End Date Gena Muro MD [address] [place] [phone] PCP - General Family Practice 11/17/24 documented as of this encounter
--- OUTSIDE RECORDS SUMMARY | 2025-01-09 01:37 | XMS_ITS | Encounter Summary ---
Author Organization [facility] Address [address] [place] [address] Care Team Providers Care Mortising Machine Operator Name Role Phone Gena Muro MD Primary Care Provider [phone] Encounter Details Date Type Department Care Team (Latest Contact Info) Description 01/10/1997 Orders Only [facility] Social History Tobacco Use Types Packs/Day Years Used Date Smoking Tobacco: Never Assessed Comments Unknown Sex and Gender Information Value Date Recorded Sex Assigned at Not on file Legal Sex Female 4:42 AM CDT Gender Identity Not on file Sexual Orientation Not on file documented as of this encounter Plan of Treatment Upcoming Encounters Date Type Department Care Team (Late st Contact Info) Description 02/16/2025 3:20 PM CDT Appointment [facility] [address] [place] [address] [place] [phone] [place] [address] [place] [phone] 09/28/2025 1:15 PM CDT Appointment [facility] [address] [place] [phone] Sari Alcaraz MD [address] [place] [phone] 11/10/2025 2:00 PM CDT Appointment Optometry at [facility] [address] 401 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
--- OUTSIDE RECORDS SUMMARY | 2025-01-09 01:37 | XMS_ITS | Encounter Summary ---
Author Organization [employer] Address [address] [place] [address] Care Team Providers Care Rug Sample Beveler Name Role Phone Gena Muro MD Primary Care Provider Encounter Details Date Type Department Care Team (Late st Contact Info) Description 12/07/2024 Results Follow-Up [address] [place] [phone] Gena Muro MD [address] [place] [address] Social History Tobacco Use Types Packs/Day Years [...] Encounters Date Type Department Care Team (Late Contact Info) Description 02/16/2025 3:20 PM CDT Appointment [address] [place] [phone] Gena Muro MD [address] [place] [address] 09/28/2025 1:15 PM CDT Appointment Specialty Center 435 Urology Clinic 435 [facility] [place] [address] Sari Alcaraz MD [address] [place] [address] 11/10/2025 2:00 PM CDT Appointment Optometry at [facility] [address] 401 [facility]. [place], [place] [phone] Edil Bradford, OD [address] [place], [place] [phone] documented as of this encounter Visit Diagnoses Not on filedocumented in this encounter Care Teams Rug Sample Beveler Relationship Specialty Start Date End Date Gena Muro MD [address] [place] [address] PCP - General Family Practice 11/17/24 documented as of this encounter
[2025-01-09 01:47] VITALS: BP 124/71; PULSE 70; RESP 16; TEMP 36.6; O2SAT 98
[2025-01-09 01:48] VITALS: BP 124/71; PULSE 70; RESP 16; TEMP 36.6
== END 2025-01-09 01:57 | disposition home or self-care (01) ==
PROVIDERS: Emergency Provider Family Medicine
DX: N30.91 Cystitis, unspecified with hematuria (principal)
CPT/HCPCS: 81001; 87086; 99283; 99284